=== PATIENT | male | born 1975 | race Caucasian/White ===

== ENCOUNTER 2018-11-15 07:20 | Emergency (ER) | payer SELFPAY | END 2018-11-15 07:44 | disposition left against medical advice (07) | LOC: ED 07:38 | DX: R42 Dizziness and giddiness (principal); Z53.21 Procedure and treatment not carried out due to patient leaving prior to being seen by health care provider ==

== ENCOUNTER 2019-06-26 11:29 | Emergency (ER) | payer MEDICAID ==
[~2019-06-26] VITALS: Ht 180.3 cm; Wt 104.6 kg
[2019-06-26 15:03] VITALS: BP 140/87
== END 2019-06-26 15:11 | disposition home or self-care (01) ==
LOC: ED 15:03
DX: R55 Syncope and collapse (principal)
CPT/HCPCS: 36415; 80053; 81001; 85025; 93005; 99284

== ENCOUNTER 2020-02-21 09:23 | Emergency (ER) | payer MEDICAID ==
[~2020-02-21] VITALS: Ht 180.3 cm; Wt 109.0 kg
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
--- NOTE | 2020-02-21 10:01 | NUR ---
PA IN TO ASSESS PATIENT. PT POSITIVE FOR BLOOD IN STOOL. AWAITING FURTHER ORDERS.
[2020-02-21 10:28] LABS: BASOPHILS # (AUTO) 0.03 x10^3/uL (0-0.1); BASOPHILS % (AUTO) 0 % (0-1); EOSINOPHILS # (AUTO) 0.13 x10^3/uL (0-0.4); EOSINOPHILS % (AUTO) 2 % (1-7); LYMPHOCYTES # (AUTO) 2.01 x10^3/uL (1-3.4); LYMPHOCYTES % (AUTO) 34 % (22-44); MD NO; MEAN CORPUSCULAR HEMOGLOBIN 29.8 pg (27.5-34.5); MEAN CORPUSCULAR HGB CONC 34.9 g/dL (33.2-36.2); MEAN CORPUSCULAR VOLUME 85.3 fL (81-97); MEAN PLATELET VOLUME 9.5 fL (7.4-10.4); MONOCYTES # (AUTO) 0.31 x10^3/uL (0.2-0.8); MONOCYTES % (AUTO) 5 % (2-9); NEUTROPHILS # (AUTO) 3.48 x10^3/uL (1.8-6.8); NEUTROPHILS % (AUTO) 58 % (42-75); PLATELET COUNT 238 x10^3/uL (130-400); RED BLOOD COUNT 4.85 x10^6/uL (4.38-5.82); RED CELL DISTRIBUTION WIDTH 13.5 % (9.4-14.8)
[2020-02-21 11:00] LABS: ALBUMIN 3.3 g/dL (3.4-5.0); ANION GAP 7 mmol/L (5-15); CALCIUM 8.8 mg/dL (8.5-10.1); CHLORIDE 108 mmol/L (98-107); CREATININE 1.25 mg/dL (0.7-1.3)
[2020-02-21 11:18] VITALS: BP 156/99
--- NOTE | 2020-02-21 11:20 | NUR ---
DISCHARGE INSTRUCTIONS GIVEN TO PATIENT WITH PRESCRIPTIONS. PT VERBALIZES UNDERSTANDING OF ALL INSTRUCTIONS AND FOLLOW UP. PT AMBULATED OUT OF ED WITHOUT DIFF.
== END 2020-02-21 11:20 | disposition home or self-care (01) ==
LOC: ED 09:40
DX: G89.29 Other chronic pain (principal); M79.662 Pain in left lower leg; K64.4 Residual hemorrhoidal skin tags; R11.10 Vomiting, unspecified
CPT/HCPCS: 36415; 80048; 82040; 85025; 99283

== ENCOUNTER 2020-04-13 13:22 | Emergency (ER) | payer MEDICAID ==
[~2020-04-13] VITALS: Ht 180.3 cm; Wt 107.8 kg
[2020-04-13 13:28] VITALS: BP 179/104
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
--- NOTE | 2020-04-13 14:42 | NUR ---
Patient given discharge instructions and they have confirmed that they understand the instructions. Patient ambulatory with steady gait.
== END 2020-04-13 14:43 | disposition home or self-care (01) ==
LOC: ED 14:00
DX: M79.605 Pain in left leg (principal); G89.29 Other chronic pain; I10 Essential (primary) hypertension
CPT/HCPCS: 99281

== ENCOUNTER 2020-05-13 09:47 | Emergency (ER) | payer MEDICAID ==
[~2020-05-13] VITALS: Ht 180.3 cm; Wt 106.0 kg
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
[2020-05-13 11:43] LABS: BASOPHILS # (AUTO) 0.03 x10^3/uL (0-0.1); BASOPHILS % (AUTO) 1 % (0-1); EOSINOPHILS # (AUTO) 0.14 x10^3/uL (0-0.4); EOSINOPHILS % (AUTO) 3 % (1-7); LYMPHOCYTES # (AUTO) 1.99 x10^3/uL (1-3.4); LYMPHOCYTES % (AUTO) 38 % (22-44); MD NO; MEAN CORPUSCULAR HEMOGLOBIN 28.8 pg (27.5-34.5); MEAN CORPUSCULAR HGB CONC 33.5 g/dL (33.2-36.2); MEAN CORPUSCULAR VOLUME 85.8 fL (81-97); MONOCYTES % (AUTO) 6 % (2-9); NEUTROPHILS # (AUTO) 2.73 x10^3/uL (1.8-6.8); NEUTROPHILS % (AUTO) 53 % (42-75); PLATELET COUNT 228 x10^3/uL (130-400); RED BLOOD COUNT 4.81 x10^6/uL (4.38-5.82); RED CELL DISTRIBUTION WIDTH 13.6 % (9.4-14.8)
[2020-05-13 11:45] VITALS: BP 154/95
--- NOTE | 2020-05-13 11:45 | NUR ---
PT RESTING IN [facility]. REQUESTED FOOD TRAY. TRAY ORDERED. WILL NOT NOT GIVE TO PT UNTIL CLEARED BY DOC
[2020-05-13 11:53] LABS: ALANINE AMINOTRANSFERASE 40 U/L (12-78); ALBUMIN 3.6 g/dL (3.4-5.0); ANION GAP 2 mmol/L (5-15); CALCIUM 8.9 mg/dL (8.5-10.1); CHLORIDE 110 mmol/L (98-107); CREATININE 1.19 mg/dL (0.7-1.3)
[2020-05-13 11:55] LABS: ALKALINE PHOSPHATASE 100 U/L (45-117); BILIRUBIN,TOTAL 0.3 mg/dL (0.2-1.0); TOTAL PROTEIN 7.3 g/dL (6.4-8.2)
== END 2020-05-13 12:28 | disposition home or self-care (01) ==
LOC: ED 10:44
DX: R10.84 Generalized abdominal pain (principal); I10 Essential (primary) hypertension
CPT/HCPCS: 36415; 74021; 80053; 83690; 85025; 93005; 99285

== ENCOUNTER 2020-07-13 16:41 | Emergency (ER) | payer MEDICAID ==
[~2020-07-13] VITALS: Ht 180.3 cm; Wt 104.4 kg
[2020-07-13 16:53] VITALS: BP 154/118
[2020-07-13] MEDS ORDERED: ONDANSETRON ODT 4 MG ONE (17:08)
[2020-07-13] MEDS ORDERED: ONDANSETRON ODT 4 MG PO ONE (17:30)
== END 2020-07-13 17:25 | disposition home or self-care (01) ==
LOC: ED 17:10
DX: R11.0 Nausea (principal); Z76.0 Encounter for issue of repeat prescription; G89.29 Other chronic pain; M25.569 Pain in unspecified knee; I10 Essential (primary) hypertension; E78.5 Hyperlipidemia, unspecified
CPT/HCPCS: 99283; Q0162; 99281

== ENCOUNTER 2020-07-24 12:57 | Emergency (ER) | payer MEDICAID ==
[~2020-07-24] VITALS: Ht 180.3 cm; Wt 105.6 kg
[2020-07-24 13:10] VITALS: BP 130/93
--- NOTE | 2020-07-24 14:05 | NUR ---
DESIGNER/WRITER: CALLED FOR ROOM, NO ANSWER
--- NOTE | 2020-07-24 14:38 | NUR ---
DIRECTOR OF SUSTAINABILITY: CALLED FOR ROOM, NO ANSWER
--- NOTE | 2020-07-24 14:48 | NUR ---
TRAMPOLINE TEAM COACH: PT CALLED FOR ROOM, NO ANSWER
== END 2020-07-24 14:50 | disposition left against medical advice (07) ==
LOC: ED 14:44
DX: H57.9 Unspecified disorder of eye and adnexa (principal); Z53.21 Procedure and treatment not carried out due to patient leaving prior to being seen by health care provider

== ENCOUNTER 2020-07-24 14:57 | Emergency (ER) | payer MEDICAID ==
[~2020-07-24] VITALS: Ht 180.3 cm; Wt 105.2 kg
[2020-07-24 15:07] VITALS: BP 159/105
[2020-07-24] MEDS ORDERED: PROPARACAINE OPHTH 0.5%, 15ML ONE (15:29)
[2020-07-24] MEDS ORDERED: FLUORESCEIN OPHTHALMIC 1 MG STRIP ONE (15:29)
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
[2020-07-24] MEDS ORDERED: FLUORESCEIN OPHTHALMIC 1 MG STRIP EACHEYE ONE (16:00)
[2020-07-24] MEDS ORDERED: PROPARACAINE OPHTH 0.5%, 15ML EACHEYE ONE (16:00)
== END 2020-07-24 16:04 | disposition home or self-care (01) ==
LOC: ED 15:06
DX: S05.02XA Injury of conjunctiva and corneal abrasion without foreign body, left eye, initial encounter (principal); I10 Essential (primary) hypertension; E78.5 Hyperlipidemia, unspecified; F17.200 Nicotine dependence, unspecified, uncomplicated; X58.XXXA Exposure to other specified factors, initial encounter; Y93.89 Activity, other specified; Y92.89 Other specified places as the place of occurrence of the external cause; Y99.8 Other external cause status
CPT/HCPCS: 99283

== ENCOUNTER 2021-02-28 15:04 | Emergency (ER) | payer MEDICAID ==
[~2021-02-28] VITALS: Ht 180.3 cm; Wt 106.0 kg
[2021-02-28 16:28] VITALS: BP 143/80
--- NOTE | 2021-02-28 16:34 | NUR ---
PT IN BED WITH DIAMOND ASSORTER IN PLACE WITH BED RAILS UP BILATERALLY AND CALL LIGHT WITHIN REACH. PT DENIES NEED OR DISCOMFORT AT THIS TIME, SATTING WELL ON ROOM AIR, NO SIGNS OR SYMPTOMS OF ACUTE DSITRSS NOTED RESPIRATIONS EVEN AND UNLABORED
== END 2021-02-28 17:27 | disposition home or self-care (01) ==
LOC: ED 17:21
DX: R07.89 Other chest pain (principal); R10.9 Unspecified abdominal pain; I10 Essential (primary) hypertension; E78.5 Hyperlipidemia, unspecified; F17.200 Nicotine dependence, unspecified, uncomplicated
CPT/HCPCS: 74022; 99283

== ENCOUNTER 2021-03-16 20:09 | Emergency (ER) | payer MEDICAID ==
[~2021-03-16] VITALS: Ht 180.3 cm; Wt 110.0 kg
--- NOTE | 2021-03-16 20:49 | NUR ---
ASSUMED CARE OF PATIENT. PATIENT REPORTS DIZZINESS, PT ALSO REPORTS HE HAS BEEN VOMITING SINCE TUESDAY. VS STABLE. NO ACUTE DISTRESS NOTED. CALL LIGHT IN PLACE. WILL CONTINUE TO MONITOR .
--- NOTE | 2021-03-16 21:13 | NUR ---
DR URIBE IN ROOM.
[2021-03-16] MEDS ORDERED: ONDANSETRON 2MG/ML, 2ML IVPush ONE (21:30)
[2021-03-16] MEDS ORDERED: SODIUM CHLORIDE FLUSH 10ML SYR IVF ONE (21:30)
[2021-03-16] MEDS ORDERED: SODIUM CHLORIDE 0.9% 1,000ML IVBOLUS ONE (21:30)
[2021-03-16] MEDS ORDERED: ONDANSETRON 2MG/ML, 2ML ONE (21:34)
--- NOTE | 2021-03-16 21:40 | NUR ---
PT RESTING IN ROOM. VS STABLE. NO ACUTE DISTRESS NOTED. CALL LIGHT IN PLACE. WILL CONTINUE TO MONITOR.
[2021-03-16 21:57] LABS: BASOPHILS % (AUTO) 1 % (0-1); EOSINOPHILS % (AUTO) 2 % (1-7); LYMPHOCYTES % (AUTO) 38 % (22-44); MEAN CORPUSCULAR HEMOGLOBIN 28.7 pg (27.5-34.5); MEAN PLATELET VOLUME 8.9 fL (7.4-10.4); MONOCYTES % (AUTO) 7 % (2-9); NEUTROPHILS % (AUTO) 51 % (42-75); PLATELET COUNT 205 x10^3/uL (130-400); RED BLOOD COUNT 4.68 x10^6/uL (4.38-5.82); RED CELL DISTRIBUTION WIDTH 13.7 % (9.4-14.8)
[2021-03-16 21:58] LABS: ALBUMIN 3.4 g/dL (3.4-5.0); ANION GAP 4 mmol/L (5-15); CALCIUM 8.7 mg/dL (8.5-10.1); CHLORIDE 106 mmol/L (98-107)
[2021-03-16 21:59] LABS: MD NO
[2021-03-16 22:06] LABS: CREATININE 1.73 mg/dL (0.7-1.3); TROPONIN I 0.021 ng/mL (0.000-0.045)
--- NOTE | 2021-03-16 22:38 | NUR ---
PT RESTING IN ROOM. VS STABLE. NO ACUTE DISTRESS NOTED. CALL LIGHT IN PLACE. WILL CONTINUE TO MONITOR.
--- NOTE | 2021-03-16 23:10 | NUR ---
DR URIBE AWARE OF VS AT TIME OF DISCHARGE. PT HAS A HISTORY OF HTN.
[2021-03-16 23:11] VITALS: BP 151/102
== END 2021-03-16 23:30 | disposition home or self-care (01) ==
LOC: ED 20:39
DX: K29.00 Acute gastritis without bleeding (principal); N28.9 Disorder of kidney and ureter, unspecified; E86.0 Dehydration; R42 Dizziness and giddiness; R11.2 Nausea with vomiting, unspecified; I10 Essential (primary) hypertension; E78.5 Hyperlipidemia, unspecified
CPT/HCPCS: 36415; 80048; 82040; 84484; 85025; 93005; 96361; 96374; 99284; J2405; J7030

== ENCOUNTER 2021-05-29 07:37 | Emergency (ER) | payer MEDICAID ==
[~2021-05-29] VITALS: Ht 180.3 cm; Wt 109.0 kg
--- NOTE | 2021-05-29 07:43 | NUR ---
paperhanger and painter note: no answer when called from mike
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
[2021-05-29] MEDS ORDERED: NAPROXEN 500 MG TABLET PO ONE (08:00)
--- NOTE | 2021-05-29 08:37 | NUR ---
Patient given discharge instructions and prescription and they have confirmed that they understand the instructions. Patient ambulatory with steady gait. NAD, all questions answered appropriately, denies additional needs at this time. No personal belongings left in room after discharge.
== END 2021-05-29 08:38 | disposition home or self-care (01) ==
LOC: ED 08:10
DX: M54.9 Dorsalgia, unspecified (principal); Z76.0 Encounter for issue of repeat prescription; I10 Essential (primary) hypertension; E78.5 Hyperlipidemia, unspecified
CPT/HCPCS: 99281

== ENCOUNTER 2021-06-14 04:48 | Observation (INO) | payer MEDICAID ==
[~2021-06-14] VITALS: Ht 180.3 cm; Wt 110.5 kg
[2021-06-14] MEDS ORDERED: SODIUM CHLORIDE 0.9% 1,000ML IVBOLUS ONE (05:30)
[2021-06-14 05:59] LABS: PH, VENOUS 7.314 pH (7.320-7.420)
[2021-06-14 06:00] LABS: FIO2 ROOM AIR %
[2021-06-14] MEDS ORDERED: NALOXONE 0.4 MG/ML, 1ML IVPush PRN (06:00)
--- NOTE | 2021-06-14 06:00 | NUR ---
PATIENT TO CT AT THIS TIME
[2021-06-14 06:05] LABS: MEAN PLATELET VOLUME 9.2 fL (7.4-10.4); PLATELET COUNT 161 x10^3/uL (130-400)
[2021-06-14 06:06] LABS: ACETONE, SERUM Negative (Negative)
[2021-06-14 06:09] LABS: BASOPHILS % (AUTO) 1 % (0-1); EOSINOPHILS % (AUTO) 2 % (1-7); LYMPHOCYTES % (AUTO) 30 % (22-44); MEAN CORPUSCULAR HEMOGLOBIN 28.4 pg (27.5-34.5); MEAN CORPUSCULAR HGB CONC 33.4 g/dL (33.2-36.2); MONOCYTES % (AUTO) 7 % (2-9); NEUTROPHILS % (AUTO) 60 % (42-75); RED BLOOD COUNT 4.35 x10^6/uL (4.38-5.82); RED CELL DISTRIBUTION WIDTH 14.4 % (9.4-14.8)
[2021-06-14 06:22] LABS: ALANINE AMINOTRANSFERASE 40 U/L (12-78); ALBUMIN 3.1 g/dL (3.4-5.0); ANION GAP 7 mmol/L (5-15); CHLORIDE 109 mmol/L (98-107); CREATININE 1.14 mg/dL (0.7-1.3)
[2021-06-14 06:23] LABS: SALICYLATE LEVEL < 1.7 mg/dL (2.8-20.0)
[2021-06-14 06:24] LABS: ALKALINE PHOSPHATASE 94 U/L (45-117); BILIRUBIN,TOTAL 0.2 mg/dL (0.2-1.0); TOTAL PROTEIN 6.7 g/dL (6.4-8.2)
[2021-06-14] MEDS ORDERED: LACTULOSE 20 GM/30 ML UDC PO ONE (06:29)
[2021-06-14] MEDS ORDERED: NEOMYCIN SULFATE 500 MG TABLET PO ONE (06:29)
[2021-06-14] MEDS ORDERED: POTASSIUM CHLORIDE 20 MEQ TAB.ER.PRT PO ONE (06:30)
[2021-06-14 06:35] LABS: MICROSCOPIC INDICATED
[2021-06-14 06:40] LABS: AMPHETAMINE SCREEN, URINE Negative (Negative); BARBITURATE SCREEN, URINE Negative (Negative); BENZODIAZEPINE SCREEN, URINE Negative (Negative); CANNABINOID SCREEN, URINE Positive (Negative); COCAINE SCREEN, URINE Negative (Negative); METHADONE SCREEN, URINE Negative (Negative); OPIATE SCREEN, URINE Negative (Negative)
--- NOTE | 2021-06-14 07:01 | NUR ---
REPORT GIVEN TO WARNER LEON
--- NOTE | 2021-06-14 07:04 | NUR ---
REPORT RECEIVED FROM MATT. PT IS SLEEPING IN [facility]. SIDE RAIL UPX2.
--- NOTE | 2021-06-14 07:11 | NUR ---
PT SLEEPING IN RNEY, BEDRAILS UPX2. VSS, RONN.
[2021-06-14] MEDS ORDERED: POTASSIUM CHLORIDE 20 MEQ TAB.ER.PRT ONE (07:15)
--- NOTE | 2021-06-14 07:21 | NUR ---
PT ABLE TO WAKE UP AND TAKE MEDS W/O ISSUES. PT BACK TO SLEEP ALREADY.
--- NOTE | 2021-06-14 08:24 | NUR ---
PT SLEEPING IN GURNEY, SNORING. VSS, NADN. CALL LIGHT W/IN REACH.
--- NOTE | 2021-06-14 09:27 | NUR ---
ATTEMPTED TO CALL TO GIVE REPORT
--- NOTE | 2021-06-14 09:55 | NUR ---
REPORT GIVEN TO ROMÁN HYLTON, ANSWERED QUESTIONS. SHE ASKED ABOUT NARCAN, TOLD HER IT WAS PRN AND AT THIS TIME NO NEED FOR IT.
[2021-06-14 10:57] VITALS: BP 119/76
[2021-06-14] MEDS ORDERED: ONDA-89 PO (11:13)
[2021-06-14] MEDS ORDERED: AMLO-211 PO (11:13)
[2021-06-14] MEDS ORDERED: NAPR-685 PO (11:13)
[2021-06-14] MEDS ORDERED: AMOX-367 PO (11:13)
[2021-06-14] MEDS ORDERED: BISACODYL 10 MG SUPP PR PRN (11:30)
[2021-06-14] MEDS ORDERED: SODIUM CHLORIDE 0.9% 1,000 ML IV SCH (11:30)
[2021-06-14] MEDS ORDERED: POLYETHYLENE GLYCOL 17 GM PACKET PO PRN (11:30)
[2021-06-14] MEDS: LACTULOSE 10 GM/15 ML UDC PO SCH ×2 (11:30→20:04)
[2021-06-14] MEDS ORDERED: NAPROXEN 500 MG TABLET PO PRN (11:30)
[2021-06-14] MEDS ORDERED: ONDANSETRON 4 MG TABLET PO PRN (11:30)
[2021-06-14] MEDS: THIAMINE 100MG TABLET PO SCH ×2 (11:30→20:04)
[2021-06-14] MEDS: AMLODIPINE 10 MG TAB PO SCH (12:19)
[2021-06-14] MEDS: AMOXICILLIN/CLAV 500-125MG TABLET PO SCH ×2 (12:19→20:04)
[2021-06-14 15:17] VITALS: BP 153/96
[2021-06-15 01:36] VITALS: BP 139/84
[2021-06-15] MEDS: AMOXICILLIN/CLAV 500-125MG TABLET PO SCH ×2 (03:34→11:46)
[2021-06-15 05:22] LABS: ALANINE AMINOTRANSFERASE 37 U/L (12-78); ANION GAP 5 mmol/L (5-15); CALCIUM 8.3 mg/dL (8.5-10.1); CHLORIDE 110 mmol/L (98-107); CREATININE 1.11 mg/dL (0.7-1.3)
[2021-06-15 05:25] LABS: BASOPHILS % (AUTO) 1 % (0-1); EOSINOPHILS % (AUTO) 3 % (1-7); LYMPHOCYTES % (AUTO) 41 % (22-44); MEAN CORPUSCULAR HEMOGLOBIN 29.1 pg (27.5-34.5); MEAN CORPUSCULAR HGB CONC 34.3 g/dL (33.2-36.2); MEAN PLATELET VOLUME 9.3 fL (7.4-10.4); MONOCYTES % (AUTO) 7 % (2-9); NEUTROPHILS % (AUTO) 49 % (42-75); PLATELET COUNT 173 x10^3/uL (130-400)
[2021-06-15 05:35] LABS: ALKALINE PHOSPHATASE 95 U/L (45-117); BILIRUBIN,TOTAL 0.4 mg/dL (0.2-1.0); CREATINE KINASE, TOTAL 314 U/L (39-308); TOTAL PROTEIN 6.6 g/dL (6.4-8.2)
[2021-06-15 07:13] VITALS: BP 141/87
[2021-06-15] MEDS ORDERED: POTASSIUM CHLORIDE 10% 40 MEQ/30 ML UDC PO ONE (08:00)
[2021-06-15] MEDS ORDERED: POTASSIUM CHLORIDE 20 MEQ PACKET PO ONE (08:00)
[2021-06-15] MEDS: LACTULOSE 10 GM/15 ML UDC PO SCH (08:41)
[2021-06-15] MEDS: THIAMINE 100MG TABLET PO SCH (08:41)
[2021-06-15] MEDS: AMLODIPINE 10 MG TAB PO SCH (08:41)
[2021-06-15] MEDS ORDERED: SODIUM CHLORIDE 0.9% 1,000 ML IV SCH (11:30)
[2021-06-15] MEDS ORDERED: THIA100T67 PO (12:05)
== END 2021-06-15 16:02 | disposition home or self-care (01) ==
LOC: ED 07:31 → INTOOBSV 08:32 → EDIP 08:32 → 4WST 10:24
PROVIDERS: ADMIT Hospitalist; ATTEND Hospitalist
DX: R41.82 Altered mental status, unspecified (principal); F10.129 Alcohol abuse with intoxication, unspecified; G93.41 Metabolic encephalopathy; M62.82 Rhabdomyolysis; E87.6 Hypokalemia; J18.9 Pneumonia, unspecified organism; E11.9 Type 2 diabetes mellitus without complications; R60.0 Localized edema; I10 Essential (primary) hypertension; E78.5 Hyperlipidemia, unspecified; F12.90 Cannabis use, unspecified, uncomplicated; Z79.899 Other long term (current) drug therapy; Z59.0 Homelessness
CPT/HCPCS: 36415; 70450; 71045; 80053; 80299; 80307; 80320; 80329; 81001; 82010; 82140; 82550; 82803; 82962; 83735; 84100; 84443; 85025; 87040; 93005; 96360; 99285; G0378; J7030; G0480